=== PATIENT | female | born 1935 | race Caucasian/White ===

== ENCOUNTER 2016-07-09 17:45 | Inpatient (IN) | payer MEDICARE ==
[~2016-07-09] VITALS: Ht 172.7 cm; Wt 64.8 kg
[2016-07-09 17:47] VITALS: BP 133/60; PULSE 90; RESP 16; TEMP 97.7; O2SAT 100
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
[2016-07-09] MEDS ORDERED: SODIUM CHLOR 0.9% 1000 ML INJ 1,000 ML IV SCH (18:29)
[2016-07-09] MEDS ORDERED: SODIUM CHLORIDE 0.9% FLUSH 5 ML FLUSH IVF PRN (18:30)
[2016-07-09 18:32] LABS: MEAN CORPUSCULAR HGB CONC 26.8 % (32.0-36.0)
[2016-07-09] MEDS ORDERED: VITA100018 PO (18:50)
[2016-07-09 20:00] LABS: MEAN CELL VOLUME 56.6 FL (80.0-100.0); MEAN CORPUSCULAR HEMOGLOBIN 15.2 PG (27.0-34.0); PLATELET COUNT 395 TH/MM3 (150-450); RED CELL DISTRIBUTION WIDTH 21.1 % (11.6-17.2); RETIC % 2.4 % (0.4-3.0); WHITE BLOOD COUNT 6.3 TH/MM3 (4.0-11.0)
[2016-07-09 20:10] LABS: APTT (PATIENT) 23.6 SEC (24.3-30.1); PROTHROMBIN TIME - PATIENT 11.3 SEC (9.8-11.6)
--- NOTE | 2016-07-09 20:11 | RADRPT ---
EXAM DATE/TIME: 07/09/2016 18:47 [place] COMPARISON: No previous studies available for comparison. INDICATIONS : Abnormal chest x-ray. RADIATION DOSE: 5.1 CTDIvol (mGy) MEDICAL HISTORY : None SURGICAL HISTORY : None. ENCOUNTER: Initial ACUITY: 1 day PAIN SCALE: 0/10 LOCATION: Right anterior TECHNIQUE: Volumetric scanning of the chest was performed. Using automated exposure control and adjustment of the mA and/or kV according to patient size, radiation dose was kept as low as reasonab ly achievable to obtain optimal diagnostic quality images. FINDINGS: There is a 2.7 cm irregular mass seen at the superior segment of the left lower lobe. This is very concerning for a primary lung malignancy. There appears to be a possible second irregul ar mass seen in the right posterior infrahilar region in the medial right lower lobe measuring approx imately 2.4 x 1.7 cm. This is partially obscured by the hilar vessels. In addition there is a 0.6 c m nodule in the right upper lobe and at least two small less than 5 mm nodules seen in the left lingu la. There is some mild suspected atelectasis or scarring at the lung bases. No effusion is seen. S ignificant adenopathy is not clearly identified on this noncontrast CT examination. There is degener ative change in the lumbar spine. The patient does appear to have chronic calcifications seen around the right scapula in the subscapularis bursa likely related to loose bodies. There is a moderate hia que hernia with approximately 25% of the stomach seen above the diaphragm. CONCLUSION: 1. 2.7 cm suspicious mass in the superior segment of the left lower lobe. 2. Suspected more subtle mass seen at the posterior inferior right infrahilar region. 3. At least three other smooth masses are seen. The largest of these masses is seen in the right uppe r lobe measures 0.6 cm. The other two masses are in the left upper lobe/lingula and measure less alisa n 5 mm. 4. All these findings could be further evaluated with a PET/FDG study. The left lower lobe mass is a menable to percutaneous biopsy. Remington Betancourt MD on July 09, 2016 at 19:48 Board Certified Radiologist. This report was verified electronically.
[2016-07-09 20:18] LABS: ANION GAP 12 MEQ/L (5-15); AST (GOT) 23 U/L (15-37); BICARBONATE 20.5 MEQ/L (21.0-32.0); BLOOD UREA NITROGEN 13 MG/DL (7-18); CHLORIDE 104 MEQ/L (98-107); GLOMERULAR FILTRATION RATE 79 ML/MIN (>89); POTASSIUM 3.7 MEQ/L (3.5-5.1); SODIUM (NA) 136 MEQ/L (136-145)
[2016-07-09 20:23] LABS: ALKALINE PHOSPHATASE 87 U/L (45-117); ALT (GPT) 20 U/L (10-53); LDH SERUM 270 U/L (84-246); TOTAL BILIRUBIN ADULT 0.7 MG/DL (0.2-1.0); TRANSFERRIN IRON PROFILE 368 MG/DL (200-360)
[2016-07-09] MEDS ORDERED: NALOXONE HCL 0.4 MG/ML AMP IV PRN (20:30)
[2016-07-09] MEDS ORDERED: SODIUM CHLORIDE 0.9% FLUSH 5 ML FLUSH FLUSH PRN (20:30)
[2016-07-09 20:39] LABS: HEMO FLAGS AUTO DIFF
[2016-07-09 20:43] LABS: HEMATOCRIT 18.7 % (35.0-46.0)
[2016-07-09 20:47] VITALS: BP 136/61; PULSE 83; RESP 16; O2SAT 98
[2016-07-09] MEDS ORDERED: SODIUM CHLOR 0.9% 250 ML INJ 250 ML IV ONE (21:00)
[2016-07-09] MEDS ORDERED: ACETAMINOPHEN 325 MG TAB PO PRN (21:00)
[2016-07-09] MEDS ORDERED: diphenhydrAMINE HCL 50 MG/ML VIAL IV PRN (21:00)
[2016-07-09] MEDS ORDERED: SODIUM CHLORIDE 0.9% FLUSH 5 ML FLUSH FLUSH SCH (21:00)
[2016-07-09 21:10] LABS: MEAN CORPUSCULAR HGB CONC 29.5 % (32.0-36.0)
[2016-07-09 22:36] VITALS: BP 122/59; PULSE 88; RESP 16; TEMP 98.8; O2SAT 98
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
[2016-07-09 23:00] VITALS: BP 121/83; PULSE 81; RESP 16; TEMP 98.8; O2SAT 98
[2016-07-09 23:01] LABS: NEUTROPHIL # MANUAL DIFF 4.4 TH/MM3 (1.8-7.7); POLYS (SEG NEUTROPHILS) 70 % (16-70); WBC DIFF SAMPLE 100
[2016-07-09 23:02] LABS: KERATOCYTES 1+ (NORMAL); OVALOCYTES 2+ (NORMAL); PLATELET ESTIMATE SMEAR HIGH (NORMAL); PLATELET MORPHOLOGY NORMAL (NORMAL); SCAN/DIFF FINAL DIFF MANUAL; TEARDROP RBCS 1+ (NORMAL)
[2016-07-10] VITALS (9 sets, daily range): BP systolic 113–126; BP diastolic 57–63; PULSE 74–85; RESP 16–18; TEMP 97.3–98.6; O2SAT 95–99
[2016-07-10 09:43] LABS: AUTOMATED NEUTROPHIL # 4.4 TH/MM3 (1.8-7.7); BASOPHIL % 0.2 % (0.0-2.0); EOSINOPHIL # 0.1 TH/MM3 (0-0.4); EOSINOPHIL % 1.3 % (0.0-4.0); HEMATOCRIT 22.5 % (35.0-46.0); LYMPH % 26.5 % (9.0-44.0); LYMPHOCYTE # 1.9 TH/MM3 (1.0-4.8); MEAN CELL VOLUME 60.6 FL (80.0-100.0); MEAN CORPUSCULAR HEMOGLOBIN 17.9 PG (27.0-34.0); MONO % 9.7 % (0.0-8.0); NEUT % 62.3 % (16.0-70.0); PLATELET COUNT 277 TH/MM3 (150-450); RED BLOOD COUNT 3.71 MIL/MM3 (4.00-5.30); RED CELL DISTRIBUTION WIDTH 24.1 % (11.6-17.2)
[2016-07-10 09:56] LABS: HEMO FLAGS AUTO DIFF
[2016-07-10 10:01] LABS: BICARBONATE 22.5 MEQ/L (21.0-32.0); POTASSIUM 3.3 MEQ/L (3.5-5.1)
[2016-07-10] MEDS ORDERED: ACETAMINOPHEN 325 MG TAB PO PRN (10:15)
[2016-07-10] MEDS ORDERED: SODIUM CHLOR 0.9% 250 ML INJ 250 ML IV ONE (10:15)
[2016-07-10] MEDS ORDERED: FUROSEMIDE 20 MG/2 ML VIAL IV ONE (10:15)
[2016-07-10] MEDS ORDERED: diphenhydrAMINE HCL 25 MG CAP PO PRN (10:15)
--- NOTE | 2016-07-10 10:16 | HHI.PR ---
Subjective Remarks Patient says she got blood transfusion yesterday and she feels much better and says she wants to go home. Says she is not in acute distress. No n/v/d/c. Repeat h/h were pending however, now results shows H/H did not improve significantly after transfusion. Will transfuse 2 U pRBC today. Patient however insists to go home and threatens to live AMA. Objective Vitals Vital Signs Date Time Temp Pulse Resp B/P Pulse Ox O2 Delivery O2 Flow Rate FiO2 07/10/16 08:00 97.3 75 16 115/59 95 07/10/16 04:00 98.0 77 16 123/60 98 07/10/16 03:50 97.8 74 18 116/63 97 07/10/16 01:45 98.3 84 18 121/59 99 07/10/16 01:30 97.9 85 18 126/60 99 07/10/16 01:15 98.0 85 18 116/58 97 07/10/16 01:05 97.7 78 18 118/59 98 07/10/16 01:00 98.6 81 17 113/57 99 07/10/16 01:00 97.7 78 18 118/59 98 07/10/16 00:45 75 07/09/16 23:00 98.8 81 16 121/83 98 Room Air 07/09/16 22:36 98.8 88 16 122/59 98 Room Air 07/09/16 20:47 83 16 136/61 98 Room Air 07/09/16 18:06 Room Air 07/09/16 17:47 97.7 90 16 133/60 100 I/O 07/09/16 07/09/16 07/09/16 07/10/16 07/10/16 07/10/16 07:00 15:00 23:00 07:00 15:00 23:00 Intake Total 100 ml 240 ml 240 ml Balance 100 ml 240 ml 240 ml Intake Oral 100 ml 240 ml 240 ml # Voids 2 1 Result Diagram: 07/10/16 0810 07/10/16 0810 Imaging Last Impressions Chest CT 07/09/16 0000 Signed Impressions: Service Date/Time: Saturday, July 09, 2016 18:47 - CONCLUSION: 1. 2.7 cm suspicious mass in the superior segment of the left lower lobe. 2. Suspected more subtle mass seen at the posterior inferior right infrahilar region. 3. At least three other smooth masses are seen. The largest of these masses is seen in the right upper lobe measures 0.6 cm. The other two masses are in the left upper lobe/lingula and measure less than 5 mm. 4. All these findings could be further evaluated with a PET/FDG study. The left lower lobe mass is amenable to percutaneous biopsy. Remington Betancourt MD Objective Remarks GENERAL: 81 yo F, well nourished, well developed patient. Appears in nad. SKIN: Pale. Warm and dry. Varicose veins. HEAD: Atraumatic. Normocephalic. EYES: Pupils equal and round. No scleral icterus. No injection or drainage. ENT: No nasal bleeding or discharge. Mucous membranes pink and moist. NECK: Trachea midline. No JVD. CARDIOVASCULAR: Regular rate and rhythm. RESPIRATORY: No accessory muscle use. Clear to auscultation. Breath sounds equal bilaterally. GASTROINTESTINAL: Abdomen soft, non-tender, nondistended. Hepatic and splenic margins not palpable. MUSCULOSKELETAL: Extremities without clubbing, cyanosis, or edema. No obvious deformities. NEUROLOGICAL: Awake and alert. No obvious cranial nerve deficits. Motor grossly within normal limits. Five out of 5 muscle strength in the arms and legs. Normal speech. PSYCHIATRIC: Appropriate mood and affect; insight and judgment normal. A/P Assessment and Plan The patient is a 81-year-old female patient who denies prior medical history. Patient referred to come to the emergency department by her primary care provider Dr. Chin after she was found to have hemoglobin of 4.9 on outpatient labs patient and also found to have an abnormal chest x-ray, 3.5 cm left lung mass. Severe symptomatic anemia- hemoglobin 5.0 on admission Transfused 3 units packed red blood cells. Iron panel reviewed: Iron 10, total iron binding capacity 515, percent saturation 1.9 Hemoccult stool negative and emergency department Repeat Hgb 07/10 did not improve significantly at 6.6 . Transfuse 2U PRBC today Hem/onc consulted, appreciate recommendations Left lung mass CT chest reviewed by myself as well as Dr. Colin reveals: 2.7 cm suspicious mass in the superior segment of the left lower lobe. 2. Suspected more subtle mass seen at the posterior inferior right infrahilar region. 3. At least three other smooth masses are seen. The largest of these masses is seen in the right upper lobe measures 0.6 cm. The other two masses are in the left upper lobe/ lingula and measure less than 5 mm. 4. All these findings could be further evaluated with a PET/FDG study. The left lower lobe mass is amenable to percutaneous biopsy. Consult oncology Consult interventional radiology for percutaneous biopsy SCDs for DVT prophylaxis Discussed with the patient, family at bedside, GI service Dr Chavez and the nurse. Patient says she feels much better and she wants to leave AMA. Went to talk with the patient again and also with the family. Patient left AMA and did not get blood transfusion Anitha Rice MD Jul 10, 2016 10:16
[2016-07-10 10:45] LABS: OVALOCYTES 1+ (NORMAL); SCAN/DIFF AUTO DIFF CONFIRMED
[2016-07-10 10:46] LABS: KERATOCYTES OCC (NORMAL)
[2016-07-10] MEDS ORDERED: DIATRIZOATE MEGLUM/DIATRIZOATE SOD 9 ML CUP PO ONE (11:45)
[2016-07-10] MEDS ORDERED: IRON SUCROSE INJ 200 MG in SODIUM CHLORIDE 0.9% INJ 100 ML IV SCH (12:00)
[2016-07-10] MEDS ORDERED: FERROUS SULFATE 325 MG (65 MG ELEMENTAL IRON) TAB PO SCH (12:00)
--- NOTE | 2016-07-10 12:57 | MB ---
cc: AMANDA MCDONALD M.D., MIRELA MD DATE OF CONSULTATION: 07/10/[address] Rice. REASON FOR CONSULTATION Oncology was consulted to render an opinion regarding a patient with a lung mass and severe anemia. HISTORY OF PRESENT ILLNESS The patient is a very pleasant 81-year-old female who began to experience increased weakness for the last few weeks. She also endorsed a dry cough and dyspnea on exertion for the last six weeks. She had lost about 10 pounds over the last month because she has no appetite. She denies any fever, chills or night sweats. She denies any chest pain. She denies any nausea. She vomited once yesterday. She denies abdominal pain. Denies any melena or hematochezia. Denies any change in bowel habit. Denies any dysuria or hematuria. Denies any bone pain. Denies any headache or visual changes. She went to see her primary physician, Dr. Chin, and reportedly a chest x-ray showed a lung mass and she was found to have a hemoglobin of 4.9 and she was sent to the emergency room. She had a CT of the chest which showed a 2.7 cm left lower lobe mass with subcentimeter masses in bilateral lungs all about 5 mm. There was also a subtle mass in the right infrahilar area. On presentation hemoglobin was 5, she received 2 units of packed red blood cell transfusion. She is feeling better this morning. She stated she had to go home today to take care of her . She is planning to leave against medical advice. PAST MEDICAL HISTORY Denies hypertension, diabetes, coronary artery disease. PAST SURGICAL HISTORY 1. Colonoscopy 2-3 years ago. 2. Left abdominal hernia repair. 3. Varicose vein stripping. 4. Nose surgery for a broken nose. FAMILY HISTORY One son is healthy. She has seven has sisters, one sister , one brother in [place]. SOCIAL HISTORY She smoked about a pack a week for 10 years, quit in 1970. She drinks occasionally. Lives with her . ALLERGIES NO KNOWN DRUG ALLERGY. CURRENT MEDICATIONS Ferrous sulfate. REVIEW OF SYSTEMS CONSTITUTIONAL: She lost about 10 pounds. Denies any fever or chills. She has increased weakness. EYES: Denies any blurry vision, double vision. ENT: No mouth sore or voice changes. CARDIOVASCULAR: Denies chest pressure or palpitation. RESPIRATORY: Has dyspnea on exertion and a dry cough. GASTROINTESTINAL: Denies any melena or hematochezia. Denies abdominal pain. She vomited once. GENITOURINARY: Denies any dysuria or hematuria. MUSCULOSKELETAL: Denies any pain. HEMATOLIGC: As above. ENDOCRINE: Negative. DERMATOLOGIC: Negative. PSYCHIATRIC: Negative. NEUROLOGIC: Negative. PHYSICAL EXAMINATION VITAL SIGNS: Temperature 97.3, blood pressure 115/59, O2 saturation 95% on room air. GENERAL: She is alert, oriented x3, in no acute distress, she looks pale. HEENT: Atraumatic, normocephalic. Pupils equal, round and reactive to light. Extraocular muscles intact. No scleral icterus. Oropharynx - dry mucosa, no lesion, no thrush, no mucositis. NECK: No thyromegaly. No palpable mass. LYMPHATIC: No palpable cervical, clavicular, axillary or inguinal lymph nodes. CARDIOVASCULAR: Regular, S1, S2 normal. LUNGS: Clear to auscultation bilaterally. No wheezing or rhonchi. ABDOMEN: Soft, nontender. I could not palpate liver or spleen. EXTREMITIES: No cyanosis, no clubbing, no edema. No calf tenderness. BACK: No paravertebral tenderness. SKIN: No rash or petechia. NEUROLOGIC: Nonfocal. LABORATORY DATA Reviewed. ASSESSMENT 1. Lung mass. CT showed a 2.7 cm left lower lobe lung mass, there was also a subtle mass in the right infrahilar region. There was a 6 mm right upper lobe lesion and two lesions in the left lung measured less then 5 mm. She had remote history of tobacco use. This could be primary lung cancer but the appearance is more suggestive of a metastatic cancer. Given that she has a severe anemia, we will need to rule out primary GI tumor with metastasis to lung. 2. Severe anemia. She presented with a hemoglobin of 5. She has significant microcytosis, iron saturation is 1.9, this is consistent with iron deficiency anemia. She denies gross GI bleed. She reportedly had a colonoscopy 2-3 years ago which was unremarkable. She denies any GI symptoms at this time. I suggest getting a CT abdomen and pelvis to see if there is any metastatic disease in the abdomen. We will also consult Gastroenterology for further workup. 3. Constitutional symptoms. Likely due to underlying malignancy. RECOMMENDATIONS 1. I had an extensive discussion with the patient as above. The patient stated she has to go home to take care of her and she will leave against medical advice today. I advised her to stay in the hospital for further workup. 2. If she decided to stay, we will get a CT abdomen and pelvis. 3. Consult Gastroenterology. 4. She will need a biopsy of the left lung mass. 5. Check tumor markers. 6. Give her Venofer for the iron deficiency anemia. 7. Monitor CBC. Thank you Dr. Rice for asking me to see this patient. MD JAVY Cast/GHISLAINE /10:26 AM /12:10 PM MTDD
--- NOTE | 2016-07-10 13:21 | MB ---
cc: AMANDA LEI M.D., BEATRICE S. M.D. DATE OF CONSULTATION: 07/10/[address] Lei. REASON FOR CONSULTATION Anemia, iron deficiency. HISTORY OF PRESENT ILLNESS Mrs. Culver is a 81-year-old female with no major medical problems who came to the emergency room referred by her primary care doctor for severe anemia and abnormal chest x-ray which revealed a 3.5 left lung mass. The patient was evaluated by oncology and interventional radiology was consultation for possible biopsy. The patient is wanting to go home. Not sure why her repeat hemoglobin is still low. Multiple consultants discussed with her and her to stay a little bit longer and receive additional blood work, blood transfusion and maybe complete some of the workup that is suggested. The patient denies any nausea, vomiting, abdominal pain, constipation, diarrhea, melena, hematemesis, hematochezia or any other bleeding from any other site. She stated she had a colonoscopy with Dr. Colindres some time ago, unclear exactly when. As per , she has been anemic for the last 12 weeks, unclear if she is taking medications like iron supplements or multivitamins. There is a weight loss of 10 pounds according to the . History taking is very difficult, the is interfering quite often and the patient is looking at him for guidance. PAST MEDICAL HISTORY Negative. PAST SURGICAL HISTORY 1. Hernia repair status post mesh placement. 2. Stripping of varicose veins. 3. Colonoscopy possibly was 3 years, as per patient negative. MEDICATIONS Vitamin D3. ALLERGIES NO KNOWN ALLERGIES. FAMILY HISTORY No family history of colon cancer or any other GI pathology. SOCIAL HISTORY Occasional alcohol. Quit smoking 10 years ago. REVIEW OF SYSTEMS She denies any fever or chills. She does have some weight loss. ENT: No alteration in baseline hearing or visual acuity. PULMONARY: Denies any chest pain or shortness of breath. GASTROINTESTINAL: As above. GENITOURINARY: Denies dysuria or hematuria. HEMATOLOGICAL: Does have a history of anemia for the last 12 weeks. Denies any bleeding disorder. SKIN: Pale. No alteration in baseline skin lesion. NEUROLOGICAL: No history of TIA or CVA kind of symptoms. PHYSICAL EXAMINATION GENERAL: The patient is sitting comfortably in bed in no acute distress. VITAL SIGNS: Temperature 97.3, heart rate is 75, blood pressure 115/59, pulse of 95. HEENT: PERRLA. Pale. NECK: No JVD. No lymphadenopathy. CHEST: Clear to auscultation and palpitation. CARDIOVASCULAR: S1, S2. No murmur. ABDOMEN: Abdomen is soft, nontender. Bowel sounds are present. COVERAGE ANALYST: Awake, alert, oriented x3. No focal signs identified. LABORATORY DATA Her hemoglobin was 4.9 on admission currently 6.6, MCV 58 currently 60, RDW is 21, platelets 384. PT/INR normal. Her chemistry otherwise is normal except iron saturation is 1.9, iron is 10, vitamin B low. IMAGING The patient also had a CT chest which was suggestive of a 2.7 cm suspicious mass in the superior segment of the left lower lobe, suspected more subtle mass in the inferior right infrahilar region. At least three other smooth masses are seen, the largest one of the masses is seen in the right upper lobe measured 0.6 cm, the other two masses are in the left upper lobe lingula measuring 5 mm. IMPRESSION Iron deficiency anemia. Concern for possible malignancy, possible GI, needs further evaluation and treatment. RECOMMENDATIONS Oncologic consultation was already called, CT abdomen and pelvis, tumor markers, EGD, colonoscopy. If she agrees transfuse 2 more units of blood, if discharged followup in the office for outpatient endoscopy and a colonoscopy. At this time, the patient and the family are debating about signing out AMA. I would like to thank Dr. Lei for referring her to our office for consultation. MD MIK Calderón/GHISLAINE /11:20 AM /12:47 PM
== END 2016-07-10 12:49 | disposition left against medical advice (07) | DRG 812 ==
LOC: NEPA 17:45 → NEDA 20:20 → HOCA 07-10 00:04
PROVIDERS: ADMIT Hospitalist; ATTEND Hospitalist
PROC: 30233N1 Transfusion of Nonautologous Red Blood Cells into Peripheral Vein, Percutaneous Approach (ICD-10-PCS; principal; 2016-07-09)
DX: D50.9 Iron deficiency anemia, unspecified (principal); E55.9 Vitamin D deficiency, unspecified; I83.93 Asymptomatic varicose veins of bilateral lower extremities; R91.8 Other nonspecific abnormal finding of lung field; Z87.891 Personal history of nicotine dependence; R05 Cough; R63.4 Abnormal weight loss
CPT/HCPCS: 36415; 36430; 71250; 80048; 80053; 82306; 82607; 83540; 83550; 83615; 84443; 85007; 85025; 85027; 85044; 85610; 85730; 86850; 86900; 86901; 86920; 96360; J7030; J7050; P9016

== ENCOUNTER → 2016-07-09 | Outpatient (CLI) | payer MEDICARE ==
[~2016-07-09] MED LIST: VITA100018 PO
[2016-07-09 09:07] LABS: MEAN CORPUSCULAR HGB CONC 25.9 % (32.0-36.0)
[2016-07-09 13:27] LABS: AUTOMATED NEUTROPHIL # 3.2 TH/MM3 (1.8-7.7); BASOPHIL % 0.3 % (0.0-2.0); EOSINOPHIL # 0.1 TH/MM3 (0-0.4); EOSINOPHIL % 1.5 % (0.0-4.0); LYMPH % 30.8 % (9.0-44.0); LYMPHOCYTE # 1.7 TH/MM3 (1.0-4.8); MONO % 9.8 % (0.0-8.0); NEUT % 57.6 % (16.0-70.0); PLATELET COUNT 384 TH/MM3 (150-450); RED BLOOD COUNT 3.28 MIL/MM3 (4.00-5.30); RED CELL DISTRIBUTION WIDTH 21.2 % (11.6-17.2); WHITE BLOOD COUNT 5.5 TH/MM3 (4.0-11.0)
[2016-07-09 13:43] LABS: HEMO FLAGS AUTO DIFF
[2016-07-09 13:53] LABS: ALKALINE PHOSPHATASE 77 U/L (45-117); ALT (GPT) 19 U/L (10-53); ANION GAP 11 MEQ/L (5-15); AST (GOT) 20 U/L (15-37); BLOOD UREA NITROGEN 10 MG/DL (7-18); CHLORIDE 104 MEQ/L (98-107); GLOMERULAR FILTRATION RATE 82 ML/MIN (>89); GLUCOSE,FASTING 89 MG/DL (74-99); POTASSIUM 3.2 MEQ/L (3.5-5.1); SODIUM (NA) 138 MEQ/L (136-145); TOTAL BILIRUBIN ADULT 0.6 MG/DL (0.2-1.0)
[2016-07-09 14:12] LABS: KERATOCYTES OCC (NORMAL); OVALOCYTES 1+ (NORMAL); SCAN/DIFF AUTO DIFF CONFIRMED; TEARDROP RBCS 1+ (NORMAL)
== END ==
LOC: PLAB 09:01
PROVIDERS: ATTEND Family Medicine
DX: D64.9 Anemia, unspecified (principal); R53.83 Other fatigue; E55.9 Vitamin D deficiency, unspecified; R05 Cough; R63.4 Abnormal weight loss
CPT/HCPCS: 36415; 80053; 82306; 82607; 84443; 85025